=== PATIENT | female | born 1985 | race Caucasian/White ===

== ENCOUNTER 2017-08-09 20:28 | Emergency (ER) | payer MEDICAID ==
[2017-08-10] MEDS: HYDROCODONE/APAP (5/325) TAB PO (00:37)
[2017-08-10] MEDS: LORAZEPAM 1 MG TAB PO (00:37)
[2017-08-10] MEDS: KETOROLAC 30 MG INJ IM (00:38)
== END 2017-08-10 01:43 | disposition home or self-care (01) ==
LOC: FTE 20:28
DX: M54.2 Cervicalgia (principal)
CPT/HCPCS: 96372; 99284-25

== ENCOUNTER 2018-09-09 16:32 | Inpatient (IN) | payer MEDICAID ==
[2018-09-09] MEDS: LACTATED RINGER'S 1,000 ML IV ×2 (18:49→22:41)
[2018-09-09] MEDS ORDERED: METHYLERGONOVINE 0.2 MG INJ IM (21:30)
[2018-09-09] MEDS ORDERED: CARBOPROST 250 MCG INJ IM (21:30)
[2018-09-09] MEDS ORDERED: MISOPROSTOL 200 MCG TAB PR (21:30)
[2018-09-09] MEDS ORDERED: OXYTOCIN 30 UNITS/LR 500 ML IV ×3 (21:30)
[2018-09-09] MEDS ORDERED: LIDOCAINE 1% (MPF) 30 ML INJ INJ (21:30)
[2018-09-09] MEDS: AMPICILLIN 2 GM/NS (PMX) 100 ML IV (22:42)
[2018-09-10] MEDS: DEXAMETHASONE 10 MG/ML 1 ML INJ IM (00:17)
[2018-09-10] MEDS: INSULIN ASPART [NOVOLOG] 3 ML PEN SC ×5 (01:00→17:00)
[2018-09-10 01:01] LABS: ADD MAN DIFF? NO
[2018-09-10 01:12] LABS: BASOPHILS % 0.4 % (0.0-2.0); EOSINOPHILS # 0.7 10^3/ul (0.0-0.5); EOSINOPHILS % 9.1 % (0.0-7.0); HEMATOCRIT 32.3 % (37.0-47.0); HEMOGLOBIN 10.7 g/dl (12.0-16.0); LYMPHOCYTES # 2.1 10^3/ul (0.8-2.9); LYMPHOCYTES % 25.5 % (15.0-51.0); MEAN CORPUSCULAR HEMOGLOBIN 29.8 pg (29.0-33.0); MEAN CORPUSCULAR HGB CONC 33.1 g/dl (32.0-37.0); MEAN PLATELET VOLUME 10.1 fl (7.4-10.4); MONOCYTE # 0.6 10^3/ul (0.3-0.9); MONOCYTES % 7.5 % (0.0-11.0); NEUTROPHIL # 4.6 10^3/ul (1.6-7.5); NEUTROPHILS % 56.8 % (39.0-77.0); PLATELET COUNT 234 10^3/UL (140-415); RED BLOOD COUNT 3.59 10^6/ul (4.20-5.40); RED CELL DISTRIBUTION WIDTH 15.1 % (11.5-14.5)
[2018-09-10 01:12] LABS: WHITE BLOOD COUNT 8.1 10^3/ul (4.8-10.8)
[2018-09-10 01:31] LABS: INR 0.85; PARTIAL THROMBOPLASTIN TIME 23.8 Sec (23.0-35.0); PROTIME 11.7 Sec (11.9-14.9); PT RATIO 0.9
[2018-09-10] MEDS: ACCU-CHEK XX ×2 (03:00→05:00)
[2018-09-10] MEDS: AMPICILLIN 1 GM/NS (PMX) 50 ML IVPB ×5 (03:20→17:00)
[2018-09-10] MEDS: LACTATED RINGER'S 1,000 ML IV ×2 (06:17→14:07)
[2018-09-10] MEDS ORDERED: DEXAMETHASONE 4 MG/ML 5 ML INJ IM (13:00)
[2018-09-10] MEDS: DEXAMETHASONE 4 MG/ML 5 ML INJ IM (13:15)
[2018-09-10 15:59] LABS: RAPID PLASMA REAGIN NONREACTIVE (NR)
[2018-09-11] MEDS: DEXAMETHASONE 4 MG/ML 5 ML INJ IM ×2 (00:04→12:30)
[2018-09-11] MEDS: LACTATED RINGER'S 1,000 ML IV ×3 (00:04→15:36)
[2018-09-11] MEDS: INSULIN ASPART [NOVOLOG] 3 ML PEN SC ×3 (00:10→19:50)
[2018-09-12] MEDS: LACTATED RINGER'S 1,000 ML IV ×4 (01:18→19:52)
[2018-09-12] MEDS ORDERED: GLUCOSE GEL 15 GRAM TUBE BUCCAL (07:00)
[2018-09-12] MEDS ORDERED: GLUCOSE GEL 15 GRAM TUBE PO ×2 (07:00)
[2018-09-12] MEDS ORDERED: GLUCAGON 1 MG INJ IM (07:00)
[2018-09-12] MEDS ORDERED: DEXTROSE 50% 50 ML SYRINGE IV ×2 (07:00)
[2018-09-12] MEDS: ACCU-CHEK XX ×4 (07:30→19:35)
[2018-09-12] MEDS: metFORMIN 500 MG TAB PO ×2 (08:38→23:27)
[2018-09-12] MEDS ORDERED: MISOPROSTOL 200 MCG TAB PR (10:00)
[2018-09-12] MEDS ORDERED: METHYLERGONOVINE 0.2 MG INJ IM (10:00)
[2018-09-12] MEDS ORDERED: OXYTOCIN 30 UNITS/LR 500 ML IV ×2 (10:00)
[2018-09-12] MEDS ORDERED: CARBOPROST 250 MCG INJ IM (10:00)
[2018-09-12] MEDS ORDERED: LIDOCAINE 1% (MPF) 30 ML INJ INJ (10:00)
[2018-09-12 10:31] LABS: ADD MAN DIFF? NO
[2018-09-12 10:33] LABS: BASOPHILS % 0.5 % (0.0-2.0); EOSINOPHILS # 0.2 10^3/ul (0.0-0.5); EOSINOPHILS % 2.8 % (0.0-7.0); HEMATOCRIT 28.3 % (37.0-47.0); HEMOGLOBIN 9.3 g/dl (12.0-16.0); LYMPHOCYTES # 1.6 10^3/ul (0.8-2.9); LYMPHOCYTES % 25.2 % (15.0-51.0); MEAN CORPUSCULAR HEMOGLOBIN 29.9 pg (29.0-33.0); MEAN CORPUSCULAR HGB CONC 32.9 g/dl (32.0-37.0); MEAN PLATELET VOLUME 10.1 fl (7.4-10.4); MONOCYTE # 0.5 10^3/ul (0.3-0.9); MONOCYTES % 7.1 % (0.0-11.0); NEUTROPHIL # 4.2 10^3/ul (1.6-7.5); NEUTROPHILS % 63.6 % (39.0-77.0); NUCLEATED RED BLOOD CELLS% 0.5 /100WBC (0.0-0.0); PLATELET COUNT 181 10^3/UL (140-415); RED BLOOD COUNT 3.11 10^6/ul (4.20-5.40); RED CELL DISTRIBUTION WIDTH 15.6 % (11.5-14.5)
[2018-09-12 10:33] LABS: WHITE BLOOD COUNT 6.5 10^3/ul (4.8-10.8)
[2018-09-12] MEDS: AMPICILLIN 2 GM/NS (PMX) 100 ML IV (10:43)
[2018-09-12 11:46] LABS: INR 0.88; PT RATIO 0.9
[2018-09-12 11:47] LABS: PARTIAL THROMBOPLASTIN TIME 22.8 Sec (23.0-35.0)
[2018-09-12] MEDS: AMPICILLIN 1 GM/NS (PMX) 50 ML IV ×3 (14:50→22:42)
[2018-09-12 18:08] LABS: RAPID PLASMA REAGIN NONREACTIVE (NR)
[2018-09-13] MEDS: AMPICILLIN 1 GM/NS (PMX) 50 ML IV ×6 (02:24→22:29)
[2018-09-13] MEDS: LACTATED RINGER'S 1,000 ML IV ×2 (05:56→20:22)
[2018-09-13] MEDS: ACCU-CHEK XX (06:00)
[2018-09-13] MEDS: DEXTROSE 5%-LR 1,000 ML IV (11:12)
[2018-09-13] MEDS: metFORMIN 500 MG TAB PO (21:00)
[2018-09-14] MEDS: AMPICILLIN 1 GM/NS (PMX) 50 ML IV ×3 (02:28→09:38)
[2018-09-14] MEDS: metFORMIN 500 MG TAB PO ×2 (07:35→21:35)
[2018-09-14] MEDS: DEXTROSE 5%-LR 1,000 ML IV ×3 (19:05→19:50)
[2018-09-14] MEDS: ACCU-CHEK XX ×4 (19:49→20:08)
[2018-09-14] MEDS: LACTATED RINGER'S 1,000 ML IV ×4 (19:49→23:21)
[2018-09-14] MEDS: FERROUS SULFATE (EC) 325 MG TAB PO (21:35)
[2018-09-14] MEDS ORDERED: LACTATED RINGER'S 1,000 ML IV (23:33)
[2018-09-15] MEDS ORDERED: NACL 0.9% 3 ML SYG IV
[2018-09-15] MEDS: ACCU-CHEK XX ×4 (07:07→19:35)
[2018-09-15] MEDS: PRENATAL VITAMIN PO (09:09)
[2018-09-15] MEDS: FERROUS SULFATE (EC) 325 MG TAB PO (09:09)
[2018-09-15 11:39] LABS: ALANINE AMINOTRANSFERASE 312 IU/L (13-69); ALBUMIN 3.2 g/dl (3.3-4.9); ALBUMIN/GLOBULIN RATIO 1.14; ALKALINE PHOSPHATASE 227 IU/L (42-121); ANION GAP 9 (5-13); ASPARTATE AMINO TRANSFERASE 141 IU/L (15-46); BILIRUBIN,INDIRECT 0.2 mg/dl (0-1.1); BILIRUBIN,TOTAL 0.2 mg/dl (0.2-1.3); BLOOD UREA NITROGEN 8 mg/dl (7-20); CALCIUM 9.5 mg/dl (8.4-10.2); CARBON DIOXIDE 19 mmol/L (21-31); CHLORIDE 109 mmol/L (97-110); CREATININE 0.38 mg/dl (0.44-1.00); Estimated GFR > 60 mL/min (>60); GLUCOSE 107 mg/dl (70-220); POTASSIUM 3.6 mmol/L (3.5-5.1); SODIUM 137 mmol/L (135-144)
[2018-09-15] MEDS ORDERED: DIPHENHYDRAMINE 50 MG INJ IV (14:00)
[2018-09-15] MEDS: LACTATED RINGER'S 1,000 ML IV (14:01)
[2018-09-15] MEDS: OXYTOCIN 30 UNITS/LR 500 ML IV (15:41)
[2018-09-15] MEDS: AMPICILLIN 1 GM/NS (PMX) 50 ML IVPB ×2 (15:46→20:33)
[2018-09-15] MEDS ORDERED: AMPICILLIN 1 GM/NS (PMX) 50 ML IVPB (16:00)
[2018-09-15] MEDS: DEXTROSE 5%-LR 1,000 ML IV (16:28)
[2018-09-15] MEDS: HYDROCORTISONE 1% 28 GM CR TOP (17:12)
[2018-09-15 18:48] LABS: ADD UMIC YES; UR ASCORBIC ACID NEGATIVE (NEGATIVE); UR BILIRUBIN (Dip) NEGATIVE (NEGATIVE); UR BLOOD (Dip) 1+ mg/dL (NEGATIVE); UR CLARITY CLEAR (CLEAR); UR COLOR YELLOW (YELLOW); UR GLUCOSE (Dip) NEGATIVE (NEGATIVE); UR KETONES (Dip) 2+ mg/dL (NEGATIVE); UR LEUKOCYTE ESTERASE (Dip) NEGATIVE Leu/ul (NEGATIVE); UR NITRITE (Dip) NEGATIVE (NEGATIVE); UR RBC 3 /HPF (0-5); UR SPECIFIC GRAVITY (Dip) 1.008 (1.003-1.030); UR SQUAMOUS EPITHELIAL CELL FEW /HPF (FEW); UR TOTAL PROTEIN (Dip) NEGATIVE (NEGATIVE); UR UROBILINOGEN (Dip) NEGATIVE (NEGATIVE); UR WBC 1 /HPF (0-5)
[2018-09-15 18:57] LABS: ADD MAN DIFF? NO
[2018-09-15 19:00] LABS: WHITE BLOOD COUNT 6.2 10^3/ul (4.8-10.8)
[2018-09-15 19:00] LABS: BASOPHILS % 0.3 % (0.0-2.0); EOSINOPHILS # 0.5 10^3/ul (0.0-0.5); EOSINOPHILS % 7.3 % (0.0-7.0); HEMATOCRIT 33.1 % (37.0-47.0); HEMOGLOBIN 11.1 g/dl (12.0-16.0); LYMPHOCYTES # 1.4 10^3/ul (0.8-2.9); LYMPHOCYTES % 22.1 % (15.0-51.0); MEAN CORPUSCULAR HEMOGLOBIN 29.8 pg (29.0-33.0); MEAN CORPUSCULAR HGB CONC 33.5 g/dl (32.0-37.0); MEAN PLATELET VOLUME 10.3 fl (7.4-10.4); MONOCYTE # 0.5 10^3/ul (0.3-0.9); MONOCYTES % 8.3 % (0.0-11.0); NEUTROPHIL # 3.8 10^3/ul (1.6-7.5); NEUTROPHILS % 61.4 % (39.0-77.0); NUCLEATED RED BLOOD CELLS% 0.3 /100WBC (0.0-0.0); PLATELET COUNT 225 10^3/UL (140-415); RED BLOOD COUNT 3.72 10^6/ul (4.20-5.40); RED CELL DISTRIBUTION WIDTH 15.7 % (11.5-14.5)
[2018-09-15 19:19] LABS: INR 0.85; PROTIME 11.7 Sec (11.9-14.9); PT RATIO 0.9
[2018-09-15 19:20] LABS: ALANINE AMINOTRANSFERASE 297 IU/L (13-69); ALBUMIN 3.3 g/dl (3.3-4.9); ALBUMIN/GLOBULIN RATIO 1.13; ALKALINE PHOSPHATASE 250 IU/L (42-121); ANION GAP 11 (5-13); ASPARTATE AMINO TRANSFERASE 117 IU/L (15-46); BILIRUBIN,INDIRECT 0.3 mg/dl (0-1.1); BILIRUBIN,TOTAL 0.3 mg/dl (0.2-1.3); BLOOD UREA NITROGEN 5 mg/dl (7-20); CALCIUM 9.6 mg/dl (8.4-10.2); CARBON DIOXIDE 18 mmol/L (21-31); CHLORIDE 108 mmol/L (97-110); CREATININE 0.38 mg/dl (0.44-1.00); Estimated GFR > 60 mL/min (>60); GLUCOSE 91 mg/dl (70-220); PARTIAL THROMBOPLASTIN TIME 24.3 Sec (23.0-35.0); POTASSIUM 3.5 mmol/L (3.5-5.1); SODIUM 137 mmol/L (135-144); TOTAL PROTEIN 6.2 g/dl (6.1-8.1); URIC ACID 7.1 mg/dl (3.1-7.9)
[2018-09-15] MEDS: URSODIOL 300 MG CAP PO (20:27)
[2018-09-15] MEDS: BUTORPHANOL 2 MG INJ IV (22:45)
[2018-09-16] MEDS: OXYTOCIN 30 UNITS/LR 500 ML IV ×3 (00:38→05:40)
[2018-09-16] MEDS: DOCUSATE SODIUM 100 MG CAP PO (00:57)
[2018-09-16] MEDS ORDERED: CARBOPROST 250 MCG INJ IM (01:00)
[2018-09-16] MEDS ORDERED: ONDANSETRON 4 MG INJ IV (01:00)
[2018-09-16] MEDS ORDERED: OXYCODONE/ASPIRIN (4.88/325) TAB PO (01:00)
[2018-09-16] MEDS ORDERED: SENNA/DOCUSATE NA (8.6MG/50MG) TAB PO (01:00)
[2018-09-16] MEDS ORDERED: METHYLERGONOVINE 0.2 MG INJ IM (01:00)
[2018-09-16] MEDS ORDERED: NACL 0.9% 3 ML SYG IV (01:00)
[2018-09-16] MEDS ORDERED: MISOPROSTOL 200 MCG TAB PR (01:00)
[2018-09-16] MEDS ORDERED: DIPHENHYDRAMINE 25 MG CAP PO (01:00)
[2018-09-16] MEDS: IBUPROFEN 600 MG TAB PO ×4 (02:00→18:53)
[2018-09-16] MEDS: metFORMIN 500 MG TAB PO (02:01)
[2018-09-16] MEDS: FERROUS SULFATE (EC) 325 MG TAB PO (02:01)
[2018-09-16] MEDS: URSODIOL 300 MG CAP PO ×4 (02:05→20:18)
[2018-09-16] MEDS: MAGNESIUM SULFATE 4 GM/100 ML 100 ML IV (03:55)
[2018-09-16] MEDS: AMPICILLIN 1 GM/NS (PMX) 50 ML IVPB ×2 (04:00)
[2018-09-16] MEDS: MAGNESIUM SULFATE 20 GM/500 ML 500 ML IV ×2 (04:26→12:37)
[2018-09-16] MEDS: LANOLIN HPA 1 PKT TOP ×2 (05:38→11:30)
[2018-09-16] MEDS: SENNA/DOCUSATE NA (8.6MG/50MG) TAB PO ×2 (09:16→20:18)
[2018-09-16] MEDS: BENZOCAINE 20% 56 ML SPRAY TOP (11:30)
[2018-09-16] MEDS: WITCH HAZEL/GLYCERIN PAD PR (11:30)
[2018-09-16 12:05] LABS: MAGNESIUM 4.3 mg/dl (1.7-2.5)
[2018-09-16] MEDS: LACTATED RINGER'S 1,000 ML IV (12:55)
[2018-09-16] MEDS: ACCU-CHEK XX ×2 (13:50→20:05)
[2018-09-16 19:16] LABS: MAGNESIUM 4.5 mg/dl (1.7-2.5)
[2018-09-16] MEDS: OXYCODONE/ASPIRIN (4.88/325) TAB PO (20:18)
[2018-09-17] MEDS: IBUPROFEN 600 MG TAB PO ×4 (00:06→17:42)
[2018-09-17 01:01] LABS: MAGNESIUM 4.2 mg/dl (1.7-2.5)
[2018-09-17] MEDS: MAGNESIUM SULFATE 20 GM/500 ML 500 ML IV ×2 (05:03→09:32)
[2018-09-17] MEDS: LACTATED RINGER'S 1,000 ML IV (05:04)
[2018-09-17] MEDS: WITCH HAZEL/GLYCERIN PAD PR (05:46)
[2018-09-17] MEDS: BENZOCAINE 20% 56 ML SPRAY TOP (05:46)
[2018-09-17] MEDS: ACCU-CHEK XX ×2 (07:30→11:15)
[2018-09-17 08:38] LABS: ADD MAN DIFF? NO
[2018-09-17 08:45] LABS: WHITE BLOOD COUNT 6.8 10^3/ul (4.8-10.8)
[2018-09-17 08:45] LABS: BASOPHILS % 0.4 % (0.0-2.0); EOSINOPHILS # 0.5 10^3/ul (0.0-0.5); EOSINOPHILS % 7.6 % (0.0-7.0); HEMATOCRIT 31.8 % (37.0-47.0); HEMOGLOBIN 10.5 g/dl (12.0-16.0); LYMPHOCYTES % 29.3 % (15.0-51.0); MEAN CORPUSCULAR HEMOGLOBIN 29.9 pg (29.0-33.0); MEAN CORPUSCULAR VOLUME 90.6 fl (82.0-101.0); MEAN PLATELET VOLUME 10.4 fl (7.4-10.4); MONOCYTE # 0.5 10^3/ul (0.3-0.9); MONOCYTES % 7.8 % (0.0-11.0); NEUTROPHIL # 3.7 10^3/ul (1.6-7.5); NEUTROPHILS % 54.6 % (39.0-77.0); PLATELET COUNT 233 10^3/UL (140-415); RED BLOOD COUNT 3.51 10^6/ul (4.20-5.40); RED CELL DISTRIBUTION WIDTH 15.7 % (11.5-14.5)
[2018-09-17] MEDS: URSODIOL 300 MG CAP PO ×3 (09:04→21:35)
[2018-09-17] MEDS: SENNA/DOCUSATE NA (8.6MG/50MG) TAB PO ×2 (09:05→21:35)
[2018-09-18] MEDS: IBUPROFEN 600 MG TAB PO ×3 (00:39→11:30)
[2018-09-18] MEDS: ACETAMINOPHEN 325 MG TAB PO (03:45)
[2018-09-18] MEDS: URSODIOL 300 MG CAP PO (11:27)
[2018-09-18] MEDS: SENNA/DOCUSATE NA (8.6MG/50MG) TAB PO (11:27)
[2018-09-18 15:41] LABS: CHENODEOXYCHOLIC ACID 9.4 umol/L (< OR = 3.1); DEOXYCHOLIC ACID 6.8 umol/L (< OR = 2.4); TOTAL BILE ACIDS 45.2 umol/L (< OR = 6.8)
== END 2018-09-18 16:06 | disposition home or self-care (01) | DRG 805 ==
LOC: OBT 16:32 → L-D 09-12 10:07 → PP1 09-16 03:09 → L-D 16:33 → PP1 09-16 23:23 → OBT 20:25 → PP1 09-11 23:22 → L-D 20:25
PROVIDERS: Obstetrics & Gynecology
PROC: 10E0XZZ Delivery of Products of Conception, External Approach (ICD-10-PCS; principal; 2018-09-16)
DX: O60.13X0 Preterm labor second trimester with preterm delivery third trimester, not applicable or unspecified (principal); O26.62 Liver and biliary tract disorders in childbirth; K83.1 Obstruction of bile duct; O66.0 Obstructed labor due to shoulder dystocia; O40.3XX0 Polyhydramnios, third trimester, not applicable or unspecified; O69.81X0 Labor and delivery complicated by cord around neck, without compression, not applicable or unspecified; O24.425 Gestational diabetes mellitus in childbirth, controlled by oral hypoglycemic drugs; Z3A.35 35 weeks gestation of pregnancy; Z37.0 Single live birth
CPT/HCPCS: 36415; 76815; 76818; 80053; 81001; 82962; 83735; 83789; 84560; 85025; 85384; 85610; 85730; 86592; 86850; 86900; 86901; 96360; 99464